=== PATIENT | male | born 1945 | race Caucasian/White ===

== ENCOUNTER 2016-08-10 13:04 | Emergency (ER) | payer MEDICARE ==
--- NOTE | 2016-08-10 13:46 | ERRECORD ---
[facility] EMERGENCY RECORD HPI GENERAL (13:24 KNGU) CHIEF COMPLAINT: Patient presents for evaluation of neck pain L side x 2 days. HISTORIAN: History provided by patient, per patient with neck muscle strain L side x 2 days / no trauma/ no fever or chills. MECHANISM OF INJURY: Unknown mechanism. LOCATION: Symptoms are localized, most severe to L neck muscle. QUALITY: Pain is dull in nature, described as aching. SEVERITY: Maximum severity of symptoms moderate, Currently symptoms are moderate. TIME COURSE: Sudden onset of symptoms, There has been no change in the patient's symptoms over time. ASSOCIATED WITH: No associated symptoms. EXACERBATED BY: Patient's condition exacerbated by turning. RELIEVED BY: Patient's condition relieved by over the counter medications. ROS (13:25 KNGU) CONSTITUTIONAL: Negative constitutional review of systems. ENT: Negative ears, nose, throat review of systems. CARDIOVASCULAR: Negative cardiovascular review of systems. RESPIRATORY: Negative respiratory review of systems. GI: Negative gastrointestinal review of systems. MUSCULOSKELETAL: Historian reports spasms, neck left side. NEUROLOGIC: Negative neurologic review of systems. NOTES: All systems reviewed, negative except as described above. PAST MEDICAL HISTORY (13:10 JPAR) MEDICAL HISTORY: Notes: pt left [facility] while awaiting transfer to [place] for cardiac changes, Flu vaccine not up to date, Tetanus not up to date, Pneumococcal vaccine not up to date, Past medical history includes history of hypertension, Past medical history includes pulmonary disease, chronic obstructive pulmonary disease, Past medical history includes history of hypertension, which has been treated, Patient is compliant, Past medical history includes pulmonary disease, chronic obstructive pulmonary disease, Past medical history includes skin history, neuro fibromatosis. MALE SURGICAL HISTORY: tumor removal, Surgical history of tonsillectomy. TUMORS REMOVED FROM CHEST AND ARMS. PSYCHIATRIC HISTORY: No previous psychiatric history. SOCIAL HISTORY: Social History includes STATES HEQ QUIT SMOKING, Patient denies alcohol use, Patient denies drug use, Patient is a former tobacco user, smoked cigarettes, Patient quit smoking in the past year, Patient denies alcohol use, Patient denies drug use,. &a-1R&a+25V*p+0X*s4008X*c202B*c15G*c2P*p-0X&a-25V&a+1R Name: Kam Woods : [address] [place] [address]: [id number] AcctNum: [id number] Prepared: Miranda Aug 10, 2016 13:58 by Interface Page 1 of 3 pMD [facility] EMERGENCY RECORD KNOWN ALLERGIES No Known Drug Allergies CURRENT MEDICATIONS (13:09 JPAR) lisinopril: TABLET : Strength - 40 mg : ORAL Patient Dose: 1 tab(s) Oral once a day (in the morning). traZODone: TABLET : Strength - 100 mg : ORAL Patient Dose: 1-1.5 tab(s) Oral once a day (at bedtime). amLODIPine: TABLET : Strength - 5 mg : ORAL Patient Dose: 1 tab(s) Oral once a day (in the morning). predniSONE: TABLET : Strength - 20 mg : ORAL Patient Dose: 40 mg Oral once a day. albuterol: AEROSOL (GRAM) : Strength - 90 mcg : INHALATION Patient Dose: As Needed. albuterol sulfate: VIAL, NEBULIZER (ML) : Strength - 2.5 mg/3 mL (0.083 %) : INHALATION Patient Dose: 3 mL INHALATION every 4 hours prn. VITAL SIGNS VITAL SIGNS: Pain: 7, Time: 08/10/2016 13:07. (13:07 JPAR) BP: 137/60, Pulse: 88, Resp: 16, Temp: 97.7 (Oral), Pain: 7, O2 sat: 97, Time: 08/10/2016 13:09. (13:09 JPAR) PHYSICAL EXAM (13:26 KNGU) CONSTITUTIONAL: Vital signs reviewed, Patient afebrile, Pulse normal, Blood pressure normal, Respiratory rate normal, Patient appears non toxic, Patient appears pain free, Patient alert and oriented to person, place and time. HEAD: Head exam normal. EYES: Eye exam normal. ENT: ENT exam normal. NECK: L neck muscle lateral and posterior firm and tender. RESPIRATORY CHEST: Respiratory and chest exam normal. CARDIOVASCULAR: Cardiovascular assessment normal. BACK: Back exam normal. NEURO: Neuro exam normal. DOCTOR NOTES (13:27 KNGU) TEXT: 71 yo M with L neck muscle strain given t3 and flexeril follow up with pcp as needed. PATIENT PLAN: The patient will be discharged, The patient will &a-1R&a+25V*p+0X*x6705P*c202B*c15G*c2P*p-0X&a-25V&a+1R Name: Kam Woods : 1945 M71 MedRec: [id number] AcctNum: [id number] Prepared: TueAug 10, 2016 13:58 by Interface Page 2 of 3 pMD [facility] EMERGENCY RECORD follow up with primary care physician. PROBLEM LIST No recorded problems DIAGNOSIS (13:23 KNGU) FINAL: PRIMARY: neck strain. PRESCRIPTION acetaminophen-codeine: TABLET : 300 mg-30 mg : ORAL : Quantity: 1 Unit: tab(s) Route: ORAL Schedule: every 6 hours PRN Dispense: 15 Unit: tab(s) May substitute. Refills: No Refills . (13:21 KNGU) NOTES: No Refills. (13:21 KNGU) Flexeril: TABLET : 10 mg : ORAL : Quantity: 1 Unit: tab(s) Route: ORAL Schedule: once a day (in the evening) Dispense: 10 Unit: tab(s) May substitute. Refills: No Refills . (13:22 KNGU) NOTES: 1 tablet as needed at night for spasm No Refills. (13:22 KNGU) DISPOSITION PATIENT: Disposition Type: Discharge, Disposition: *Discharge Home. (13:23 KNGU) Patient left the department. (13:34 [facility]) Mar: JATINDER=SAHIL Demarco, Glen VANESSA=MD Beckie, April &a-1R&a+25V*p+0X*u1649A*c202B*c15G*c2P*p-0X&a-25V&a+1R Name: Kam Woods : 1945 M71 MedRec: [id number] AcctNum: [id number] Prepared: TueAug 10, 2016 13:58 by Interface Page 3 of 3 pMD MTDD
--- NOTE | 2016-08-10 13:53 | PICIS ---
[facility] EMERGENCY RECORD TRIAGE (TueAug 10, 2016 13:09 JPAR) TRIAGE NOTES: Left sided nack pain 2-3 days. (TueAug 10, 2016 13:09 JPAR) PATIENT: NAME: Kam Woods, AGE: 71, GENDER: male, : Tue1945, TIME OF GREET: TueAug 10, 2016 13:05, PREFERRED LANGUAGE: Panamanian, ETHNICITY: Not or , ECODE BILLING MAP: [facility], SSN: [id number], Zip Code: [address], KG WEIGHT: 65.32, PHONE: , , , PERSON ID: [id number]. (TueAug 10, 2016 13:09 JPAR) COMPLAINT: NECK PAIN. (TueAug 10, 2016 13:09 JPAR) ADMISSION: URGENCY: 4 Non Urgent, ADMISSION SOURCE: Home, TRANSPORT: CAR, BED: TRIAGE. (TueAug 10, 2016 13:09 JPAR) SIRS SCORING: Heart Rate 55-109 (0), Temp range 96.8-101.1 (0), respiratory rate 12-24 (0), Mental Status altered: no (0), Infection or Suspected Infection: No. (13:10 JPAR) PROVIDERS: TRIAGE NURSE: Glen Demarco RN. (TueAug 10, 2016 13:09 JPAR) VITAL SIGNS: Pain 7, Time 08/10/2016 13:07. (13:07 JPAR) BP 137/60, Pulse 88, Resp 16, Temp 97.7, (Oral), Pain 7, O2 Sat 97, Time 08/10/2016 13:09. (13:09 JPAR) PREVIOUS VISIT ALLERGIES: No Known Drug Allergies. (TueAug 10, 2016 13:09 JPAR) No Known Drug Allergies. (13:10 JPAR) KNOWN ALLERGIES No Known Drug Allergies CURRENT MEDICATIONS (13:09 JPAR) lisinopril: TABLET : Strength - 40 mg : ORAL Patient Dose: 1 tab(s) Oral once a day (in the morning). traZODone: TABLET : Strength - 100 mg : ORAL Patient Dose: 1-1.5 tab(s) Oral once a day (at bedtime). amLODIPine: TABLET : Strength - 5 mg : ORAL Patient Dose: 1 tab(s) Oral once a day (in the morning). predniSONE: TABLET : Strength - 20 mg : ORAL Patient Dose: 40 mg Oral once a day. albuterol: AEROSOL (GRAM) : Strength - 90 mcg : INHALATION Patient Dose: As Needed. albuterol sulfate: VIAL, NEBULIZER (ML) : Strength - 2.5 mg/3 mL (0.083 %) : INHALATION Patient Dose: 3 mL INHALATION every 4 hours prn. VITAL SIGNS VITAL SIGNS: Pain: 7, Time: 08/10/2016 13:07. (13:07 JPAR) &a-1R&a+25V*p+0X*i5646V*c202B*c15G*c2P*p-0X&a-25V&a+1R Name: Kam Woods : 1945 M71 MedRec: [id number] AcctNum: [id number] Prepared: Miranda Aug 10, 2016 14:04 by Interface Page 1 of 5 pMD [facility] EMERGENCY RECORD BP: 137/60, Pulse: 88, Resp: 16, Temp: 97.7 (Oral), Pain: 7, O2 sat: 97, Time: 08/10/2016 13:09. (13:09 JPAR) NURSING ASSESSMENT: NECK (13:10 JPAR) CONSTITUTIONAL: Patient arrives, via personal wheelchair, Unsteady gait, Inability to ambulate, Pt refused to get out of chair and move into exam bed., History obtained from patient, Patient appears comfortable, Patient cooperative, Patient alert, Oriented to person, place and time, Skin warm, Skin dry, Skin normal in color, Mucous membranes pink, Mucous membranes moist, Patient complains of Left sided nack pain, 2-3 day onset. PAIN: aching pain, to the left lateral neck, on a scale 0-10 patient rates pain as 7. NECK: Neck assessment findings include trachea midline, no jugular vein distention noted, Tenderness, laterally on the left, Pain with range of motion, with extension, with flexion, with rotation to the left, with rotation to the right, Notes: Pt covered from head to toe in fibroid tumors, Patient not in spinal immobilization on arrival. SAFETY: Side rails up, Cart/Stretcher in lowest position, Call light within reach, Hospital ID band on. NURSING PROCEDURE: DISCHARGE NOTE (13:28 JPAR) DISCHARGE: Patient discharged to home, in a wheelchair, driving self, unaccompanied, Summary of Care printed/ provided, Patient requested and was provided an electronic copy of Discharge Instructions, Transition record given to patient, Discharge instructions given to patient, Simple or moderate discharge teaching performed, Prescriptions given and instructions on side effects given, Name of prescription(s) given: Tylenol #3, Flexeril, Above person(s) verbalized understanding of discharge instructions and follow-up care, Patient treated and evaluated by physician. BELONGINGS: Belongings and valuables with patient at time of discharge include:, Belongings remain with patient, Valuables remain with patient. SAFETY: Side rails up, Cart/Stretcher in lowest position, Call light within reach, Hospital ID band on. HPI GENERAL (13:24 KNGU) CHIEF COMPLAINT: Patient presents for evaluation of neck pain L side x 2 days. HISTORIAN: History provided by patient, per patient with neck muscle strain L side x 2 days / no trauma/ no fever or chills. MECHANISM OF INJURY: Unknown mechanism. LOCATION: Symptoms are localized, most severe to L neck muscle. QUALITY: Pain is dull in nature, described as &a-1R&a+25V*p+0X*f1275F*c202B*c15G*c2P*p-0X&a-25V&a+1R Name: Kam Woods : 1945 M71 MedRec: [id number] AcctNum: [id number] Prepared: Miranda Aug 10, 2016 14:04 by Interface Page 2 of 5 pMD [facility] EMERGENCY RECORD aching. SEVERITY: Maximum severity of symptoms moderate, Currently symptoms are moderate. TIME COURSE: Sudden onset of symptoms, There has been no change in the patient's symptoms over time. ASSOCIATED WITH: No associated symptoms. EXACERBATED BY: Patient's condition exacerbated by turning. RELIEVED BY: Patient's condition relieved by over the counter medications. ROS (13:25 KNGU) CONSTITUTIONAL: Negative constitutional review of systems. ENT: Negative ears, nose, throat review of systems. CARDIOVASCULAR: Negative cardiovascular review of systems. RESPIRATORY: Negative respiratory review of systems. GI: Negative gastrointestinal review of systems. MUSCULOSKELETAL: Historian reports spasms, neck left side. NEUROLOGIC: Negative neurologic review of systems. NOTES: All systems reviewed, negative except as described above. PAST MEDICAL HISTORY (13:10 JPAR) MEDICAL HISTORY: Notes: pt left [facility] while awaiting transfer to [place] for cardiac changes, Flu vaccine not up to date, Tetanus not up to date, Pneumococcal vaccine not up to date, Past medical history includes history of hypertension, Past medical history includes pulmonary disease, chronic obstructive pulmonary disease, Past medical history includes history of hypertension, which has been treated, Patient is compliant, Past medical history includes pulmonary disease, chronic obstructive pulmonary disease, Past medical history includes skin history, neuro fibromatosis. MALE SURGICAL HISTORY: tumor removal, Surgical history of tonsillectomy. TUMORS REMOVED FROM CHEST AND ARMS. PSYCHIATRIC HISTORY: No previous psychiatric history. SOCIAL HISTORY: Social History includes STATES HEQ QUIT SMOKING, Patient denies alcohol use, Patient denies drug use, Patient is a former tobacco user, smoked cigarettes, Patient quit smoking in the past year, Patient denies alcohol use, Patient denies drug use,. PHYSICAL EXAM (13:26 KNGU) CONSTITUTIONAL: Vital signs reviewed, Patient afebrile, Pulse normal, Blood pressure normal, Respiratory rate normal, Patient appears non toxic, Patient appears pain free, Patient alert and oriented to person, place and time. HEAD: Head exam normal. EYES: Eye exam normal. ENT: ENT exam normal. NECK: L neck muscle lateral and posterior firm and &a-1R&a+25V*p+0X*v9735L*c202B*c15G*c2P*p-0X&a-25V&a+1R Name: Kam Woods : 1945 M71 MedRec: [id number] AcctNum: [id number] Prepared: TueAug 10, 2016 14:04 by Interface Page 3 of 5 pMD [facility] EMERGENCY RECORD tender. RESPIRATORY CHEST: Respiratory and chest exam normal. CARDIOVASCULAR: Cardiovascular assessment normal. BACK: Back exam normal. NEURO: Neuro exam normal. EVENTS TRANSFER: Triage to Emergency Triage. (TueAug 10, 2016 13:09 JPAR) Emergency Triage to Emergency Room -02. (13:09 JPAR) Removed from Emergency Emergency Room -02. (13:34 JPAR) DOCTOR NOTES (13:27 KNGU) TEXT: 71 yo M with L neck muscle strain given t3 and flexeril follow up with pcp as needed. PATIENT PLAN: The patient will be discharged, The patient will follow up with primary care physician. PROBLEM LIST No recorded problems DIAGNOSIS (13:23 KNGU) FINAL: PRIMARY: neck strain. DISPOSITION PATIENT: Disposition Type: Discharge, Disposition: *Discharge Home. (13:23 KNGU) Patient left the department. (13:34 JPAR) INSTRUCTION (13:24 KNGU) DISCHARGE: STRAIN NECK. FOLLOWUP: MD CHUYITA, [facility], [address] [facility], [facility] [place] [place] [address], [phone]. SPECIAL: Please avoid heavy lifting or sudden turning motion Please take medications as prescribed as needed for pain Follow-up with your primary physician as needed. PRESCRIPTION acetaminophen-codeine: TABLET : 300 mg-30 mg : ORAL : Quantity: 1 Unit: tab(s) Route: ORAL Schedule: every 6 hours PRN Dispense: 15 Unit: tab(s) May substitute. Refills: No Refills . (13:21 KNGU) NOTES: No Refills. (13:21 KNGU) Flexeril: TABLET : 10 mg : ORAL : Quantity: 1 Unit: tab(s) Route: ORAL Schedule: once a day (in the evening) Dispense: 10 Unit: tab(s) May substitute. Refills: No Refills . (13:22 KNGU) NOTES: 1 tablet as needed at night for spasm &a-1R&a+25V*p+0X*o6872P*c202B*c15G*c2P*p-0X&a-25V&a+1R Name: ManuelanuragKam : 1945 M71 MedRec: [id number] AcctNum: [id number] Prepared: TueAug 10, 2016 14:04 by Interface Page 4 of 5 pMD [facility] EMERGENCY RECORD No Refills. (13:22 KNGU) IMAGING (13:32 JPAR) *SUPPLY CHARGE SHEET: Image captured from scanner. *DISCHARGE INSTRUCTIONS RECEIPT: Image captured from scanner. ADMIN (13:53 OTF) DIGITAL SIGNATURE: MD Beckie, April. Mar: JATINDER=SAHIL Demarco, Glen VANESSA=MD Beckie, April &a-1R&a+25V*p+0X*f4241Y*c202B*c15G*c2P*p-0X&a-25V&a+1R Name: Kam Woods : 1945 M71 MedRec: [id number] AcctNum: [id number] Prepared: Miranda Aug 10, 2016 14:04 by Interface Page 5 of 5 pMD MTDD
== END 2016-08-10 13:28 | disposition home or self-care (01) ==
LOC: NAV ERS 13:04
DX: S16.1XXA Strain of muscle, fascia and tendon at neck level, initial encounter (principal); I10 Essential (primary) hypertension; J44.9 Chronic obstructive pulmonary disease, unspecified; Z87.891 Personal history of nicotine dependence; Z79.52 Long term (current) use of systemic steroids; Z79.891 Long term (current) use of opiate analgesic; Z79.899 Other long term (current) drug therapy; X58.XXXA Exposure to other specified factors, initial encounter
CPT/HCPCS: 99283